=== PATIENT | female | born 2000 | race Caucasian/White ===

== ENCOUNTER 2020-05-31 09:32 | Emergency (ER) | payer OTHER ==
[~2020-05-31] VITALS: Ht 160 cm; Wt 53.2 kg
[2020-05-31 09:40] VITALS: TEMP 98.6
[2020-05-31 10:13] LABS: BASO % 0.5 % (0.0-2.0); EOS # 0.1 (0.0-0.7); EOS % 1.3 % (0-4.0); GRAN # 5.2 (1.4-6.5); GRAN % 62.5 % (42.2-75.2); HEMATOCRIT 38.3 % (35.0-45.0); HEMOGLOBIN 13.1 g/dl (12.0-15.0); LYMPH # 2.2 (1.2-3.4); LYMPH % 26.9 % (20.0-51.0); MEAN CELL VOLUME 94 fl (80.0-95.0); MEAN CORPUSCULAR HEMOGLOBIN 32 pg (26.0-32.0); MEAN CORPUSCULAR HGB CONC 34 g/dl (33.0-37.0); MONO # 0.7 (0.1-0.6); MONO % 8.4 % (1.7-9.3); PLATELET COUNT 256 K/mm3 (130-400); RED BLOOD COUNT 4.08 M/mm3 (4.10-5.30); REDCELL DISTRIBUTION WIDTH-CV 13.1 % (11.5-14.5)
[2020-05-31 10:30] LABS: COLLECTION METHOD CLEAN CATCH
[2020-05-31 10:39] LABS: MUCOUS Present /lpf; PH 6 (5-8); URINE APPEARANCE Hazy; URINE BACTERIA Rare /hpf; URINE BILIRUBIN Negative (NEGATIVE); URINE BLOOD Negative (NEGATIVE); URINE COLOR Yellow; URINE GLUCOSE Negative (NEGATIVE); URINE KETONE 1+ (NEGATIVE); URINE LEUKOCYTE ESTERASE Negative (NEGATIVE); URINE NITRATE Negative (NEGATIVE); URINE PROTEIN(semi-quant) Negative (NEGATIVE); URINE RBC 0-2 /hpf; URINE UROBILINOGEN Negative (NEGATIVE)
[2020-05-31 10:45] LABS: ALBUMIN 4.4 gm/dL (3.5-5.0); C-REACTIVE PROTEIN 0.6 mg/dL (0.0-0.9); CALCIUM 9.6 mg/dL (8.4-10.2); CREATININE, serum 0.7 (0.52-1.25); POTASSIUM 3.4 mmol/L (3.4-5.0); TOTAL PROTEIN 7.3 gm/dL (6.4-8.2)
[2020-05-31] MEDS ORDERED: NORCO 325 MG-51 TAB PO (11:12)
[2020-05-31 11:29] VITALS: BP 118/75; PULSE 68
== END 2020-05-31 11:31 | disposition home or self-care (01) ==
LOC: COL.ER 09:32
PROVIDERS: Family Medicine
DX: N83.209 Unspecified ovarian cyst, unspecified side (principal); Z32.02 Encounter for pregnancy test, result negative
CPT/HCPCS: J2405; J3010; J7120

== ENCOUNTER 2020-10-24 14:31 | Emergency (ER) | payer OTHER ==
[~2020-10-24] VITALS: Ht 157.5 cm; Wt 52.3 kg
[~2020-10-24 14:31] MED LIST: NORCO 325 MG-51 TAB PO
[2020-10-24 14:42] VITALS: BP 134/94; TEMP 98.5
[2020-10-24 16:05] VITALS: PULSE 78
== END 2020-10-24 16:04 | disposition home or self-care (01) ==
LOC: COL.ER 14:31
DX: R51.9 Headache, unspecified (principal); R10.2 Pelvic and perineal pain; Z86.69 Personal history of other diseases of the nervous system and sense organs
CPT/HCPCS: J1885; J2405